=== PATIENT | male | born 1945 | race Caucasian/White ===

== ENCOUNTER → 2016-06-28 | Outpatient (CLI) | payer MEDICARE, OTHER ==
[~2016-06-28] MED LIST: ALEVE220 MG PO; ASPIR 8181 M1 PO; CAPOTEN50 MG PO; CAPTOPRIL50 MG PO; CIALIS5 MG PO; DAILY VITAMIN1 EAC8 PO; FLONASE16 G1 BOTH NARES; HYDROCHLOROTH12.5 M2 PO; HYDROCHLOROTHIA25 MG PO; IRON325 M1 PO; LATANOPROST2.5 ML BOTH EYES; METFORMIN HCL500 MG PO; MOTRIN800 MG PO; POTASSIUM CHLO10 ME3 PO; PROTONIX40 MG PO; SIMVASTATIN40 M1 PO; SIMVASTATIN40 MG PO; SYMBICORT60 INHALAT IH; TAMSULOSIN HCL0.4 MG PO; TRAMADOL HCL50 MG PO; TUSSIN COUGH15 MG PO; ZOLPIDEM TARTRA10 MG PO
== END | disposition home or self-care (01) ==
LOC: CDC 09:52
DX: Z01.810 Encounter for preprocedural cardiovascular examination (principal)
CPT/HCPCS: 93000

== ENCOUNTER 2016-08-05 21:29 | Emergency (ER) | payer OTHER ==
[~2016-08-05] VITALS: Ht 177.8 cm; Wt 93.9 kg
[2016-08-05 22:22] LABS: ADD MIUA? YES; BILIRUBIN NEGATIVE; BLOOD MODERATE; COLOR YELLOW ((YELLOW)); GLUCOSE (STRIP) NEGATIVE; KETONES NEGATIVE; LEUKOCYTES LARGE; NITRITE POSITIVE; PROTEIN (STRIP) NEGATIVE; SPECIFIC GRAVITY 1.004 (1.000-1.030); UROBILINOGEN 0.2 MG/DL (0.2-1.0)
[2016-08-05 22:46] LABS: EPITHELIAL CELLS RARE /HPF; WHITE BLOOD CELLS TNTC /HPF (0-5)
[2016-08-05 22:47] LABS: BACTERIA 2+ /HPF; CASTS NONE SEEN /LPF; CRYSTALS NONE SEEN; MUCUS NONE SEEN /LPF
[2016-08-05] MEDS ORDERED: KEFLEX500 MG PO (22:49)
[2016-08-05 23:05] VITALS: BP 149/86
== END 2016-08-05 23:11 | disposition home or self-care (01) ==
LOC: EME 21:29
PROVIDERS: Physician Assistant
DX: N39.0 Urinary tract infection, site not specified (principal); J44.9 Chronic obstructive pulmonary disease, unspecified; E78.5 Hyperlipidemia, unspecified; I10 Essential (primary) hypertension; F17.200 Nicotine dependence, unspecified, uncomplicated
CPT/HCPCS: 81003; 87077; 87086; 87186; 99281; 99284

== ENCOUNTER 2016-08-21 14:05 | Emergency (ER) | payer OTHER ==
[~2016-08-21] VITALS: Ht 177.8 cm; Wt 93.0 kg
[~2016-08-21 14:05] MED LIST changes: +KEFLEX500 MG PO
[2016-08-21 16:22] LABS: HEMATOCRIT 41.8 % (38.0-50.0); MCH 32.1 PG (29.0-34.0); MCHC 35.4 G/DL (30.0-36.0); MCV 90.7 FL (86-99); MEAN PLAT.VOLUME 8.8 uM^3 (9.0-12.4); PLATELET COUNT 286 K/uL (156-360); RBC DIS.WIDTH-CV 12.1 % (11.8-14.6); RBC DIS.WIDTH-SD 40.6 % (39-53); RED BLOOD COUNT 4.61 M/uL (4.00-5.50); WHITE BLOOD COUNT 7.6 K/uL (4.1-10.2)
[2016-08-21 16:39] LABS: CHLORIDE 98 mEq/L (99-109); POTASSIUM 3.7 mEq/L (3.7-5.4); SODIUM 134 mEq/L (136-147)
[2016-08-21 16:39] LABS: ADD MIUA? NO; BILIRUBIN NEGATIVE; BLOOD NEGATIVE; COLOR YELLOW ((YELLOW)); GLUCOSE (STRIP) NEGATIVE; KETONES NEGATIVE; LEUKOCYTES NEGATIVE; NITRITE NEGATIVE; PROTEIN (STRIP) NEGATIVE; SPECIFIC GRAVITY 1.004 (1.000-1.030); UCUL ADDED? NO; UROBILINOGEN 0.2 MG/DL (0.2-1.0)
[2016-08-21 16:41] LABS: GLUCOSE 184 mg/dL (70-99)
[2016-08-21 16:42] LABS: ANION GAP 10 MEQ/L (2-14)
[2016-08-21 16:45] LABS: GFR ESTIMATE (CALCULATED) > 59 mL/min/
[2016-08-21 16:46] LABS: UREA NITROGEN (BUN) 8 mg/dL (9-23)
[2016-08-21 19:50] VITALS: BP 109/80
== END 2016-08-21 19:52 | disposition home or self-care (01) ==
LOC: EME 14:05
PROVIDERS: Physician Assistant
PROC: 0T9B70Z Drainage of Bladder with Drainage Device, Via Natural or Artificial Opening (ICD-10-PCS; principal; 2016-08-21)
DX: R33.9 Retention of urine, unspecified (principal); N32.3 Diverticulum of bladder; R93.422 Abnormal radiologic findings on diagnostic imaging of left kidney; E11.9 Type 2 diabetes mellitus without complications; Z79.84 Long term (current) use of oral hypoglycemic drugs; I10 Essential (primary) hypertension; J44.9 Chronic obstructive pulmonary disease, unspecified; E78.5 Hyperlipidemia, unspecified; F32.9 Major depressive disorder, single episode, unspecified; F17.200 Nicotine dependence, unspecified, uncomplicated; Z85.828 Personal history of other malignant neoplasm of skin; Z98.890 Other specified postprocedural states
CPT/HCPCS: 74176; 80048; 81003; 85027; 99281; 99284

== ENCOUNTER 2016-12-11 11:43 | Emergency (ER) | payer OTHER ==
[~2016-12-11] VITALS: Ht 177.8 cm; Wt 91.8 kg
[2016-12-11] MEDS ORDERED: FLEXERIL10 MG PO (12:17)
[2016-12-11] MEDS ORDERED: NAPROXEN500 MG PO (12:17)
[2016-12-11] MEDS ORDERED: LIDODERM 5% P1 PATCH TD (12:17)
[2016-12-11] MEDS ORDERED: PREDNISONE20 MG PO (12:17)
[2016-12-11 13:00] VITALS: BP 121/80
== END 2016-12-11 13:02 | disposition home or self-care (01) ==
LOC: EME 11:43
DX: S39.012A Strain of muscle, fascia and tendon of lower back, initial encounter (principal); X50.9XXA Other and unspecified overexertion or strenuous movements or postures, initial encounter; M54.41 Lumbago with sciatica, right side; I10 Essential (primary) hypertension; E11.9 Type 2 diabetes mellitus without complications; Z79.84 Long term (current) use of oral hypoglycemic drugs; Z79.82 Long term (current) use of aspirin; F17.200 Nicotine dependence, unspecified, uncomplicated
CPT/HCPCS: J1885; J7512

== ENCOUNTER → 2017-03-09 | Outpatient (CLI) | payer MEDICARE, OTHER ==
[~2017-03-09] MED LIST changes: +FLEXERIL10 MG PO; +LIDODERM 5% P1 PATCH TD; +NAPROXEN500 MG PO; +PREDNISONE20 MG PO
== END | disposition home or self-care (01) ==
LOC: CDC 10:57
DX: Z01.810 Encounter for preprocedural cardiovascular examination (principal); M51.26 Other intervertebral disc displacement, lumbar region
CPT/HCPCS: 93000

== ENCOUNTER 2017-04-01 07:17 | Day surgery (SDC) | payer OTHER ==
[~2017-04-01] VITALS: Ht 177.8 cm; Wt 95.2 kg
[~2017-04-01 07:17] MED LIST changes: +AMBIEN10 MG PO; +FLONASE ALLERG9.9 ML BOTH NARES; +GLUCOPHAGE500 MG PO; +GUAIFENESIN WI120 ML PO; +MUCINEX1200 MG PO; +NEURONTIN300 MG PO; +NORCO 5/3251 TABLET PO; +PROAIR HFA8.5 GM IH; +PROSCAR5 MG PO; +ULTRAM50 MG PO; +XALATAN2.5 ML BOTH EYES
[2017-04-01] MEDS ORDERED: HYDROCHLOROTHIA25 MG PO (08:46)
[2017-04-01] MEDS ORDERED: HYDROCODON-ACE1 EAC7 PO (08:53)
[2017-04-01 08:59] VITALS: BP 135/76
[2017-04-01] MEDS ORDERED: VALIUM5 MG PO (13:38)
[2017-04-01] MEDS ORDERED: PERCOCET 10/1 TABLET PO (13:38)
[2017-04-01 16:19] VITALS: BP 114/56
[2017-04-01 19:11] VITALS: BP 117/73
[2017-04-01 23:32] VITALS: BP 117/68
[2017-04-02 02:46] VITALS: BP 128/66
[2017-04-02 07:34] VITALS: BP 115/67
== END 2017-04-02 10:09 | disposition home or self-care (01) ==
LOC: SDC 07:17 → 2SOUTH 13:25 → ENRESERV 13:34 → 3EAST 15:33 → SDC 15:43 → 3EAST 04-02 10:09
PROVIDERS: Neurological Surgery
DX: M51.16 Intervertebral disc disorders with radiculopathy, lumbar region (principal); M48.061 Spinal stenosis, lumbar region without neurogenic claudication; M48.07 Spinal stenosis, lumbosacral region; M79.604 Pain in right leg; E78.5 Hyperlipidemia, unspecified; I10 Essential (primary) hypertension; E11.9 Type 2 diabetes mellitus without complications; J44.9 Chronic obstructive pulmonary disease, unspecified; F17.200 Nicotine dependence, unspecified, uncomplicated; K21.9 Gastro-esophageal reflux disease without esophagitis; N40.0 Benign prostatic hyperplasia without lower urinary tract symptoms; Z79.82 Long term (current) use of aspirin
CPT/HCPCS: 72100; 76000; 82948; G0378; J0131; J0330; J0690; J1100; J1170; J2250; J2405; J2710; J3010; J3480

== ENCOUNTER 2017-06-24 05:22 | Day surgery (SDC) | payer OTHER ==
[~2017-06-24] VITALS: Ht 177.8 cm; Wt 93.4 kg
[~2017-06-24 05:22] MED LIST changes: +BACLOFEN10 MG PO; +ECHINACEA400 MG PO; +HYDROCODON-ACE1 EAC7 PO; +LYRICA50 MG PO; +PERCOCET 10/1 TABLET PO; +VALIUM5 MG PO; +VITAMIN C1000 MG PO
[2017-06-24 06:12] VITALS: BP 119/50
[2017-06-24 14:00] VITALS: BP 99/53
[2017-06-24 16:00] VITALS: BP 99/53
[2017-06-24 20:34] VITALS: BP 101/60
[2017-06-25 00:21] VITALS: BP 97/55
[2017-06-25 04:25] VITALS: BP 110/61
[2017-06-25 08:00] VITALS: BP 123/66
== END 2017-06-25 12:42 | disposition home or self-care (01) ==
LOC: SDC → ENRESERV 09:23 → 2SOUTH 09:30 → ENRESERV 12:30 → 3EAST 14:21 → SDC 15:40 → 3EAST 06-25 12:42
PROVIDERS: Neurological Surgery
DX: M51.16 Intervertebral disc disorders with radiculopathy, lumbar region (principal); M48.062 Spinal stenosis, lumbar region with neurogenic claudication; J44.9 Chronic obstructive pulmonary disease, unspecified; I10 Essential (primary) hypertension; E11.9 Type 2 diabetes mellitus without complications; Z79.84 Long term (current) use of oral hypoglycemic drugs; Z79.82 Long term (current) use of aspirin; E78.00 Pure hypercholesterolemia, unspecified; K21.9 Gastro-esophageal reflux disease without esophagitis
CPT/HCPCS: 72020; 76000; 82948; 87070; 87075; 87205; 88304; 94640; 94640 76; 99202; G0378; J0690; J1100; J1170; J1885; J2250; J2405; J3010; J3480

== ENCOUNTER 2017-08-04 14:01 | Inpatient (IN) | payer OTHER ==
[~2017-08-04] VITALS: Ht 177.8 cm; Wt 80.7 kg
[~2017-08-04 14:01] MED LIST changes: +LYRICA150 MG PO; -LYRICA50 MG PO
[2017-08-04 14:48] LABS: BASOPHIL (%) 0.3 % (0-1); BASOPHIL COUNT 0.1 K/uL (0-0.1); EOSINOPHIL (%) 1.1 % (0-5); EOSINOPHIL COUNT 0.2 K/uL (0-0.3); HEMATOCRIT 40.1 % (38.0-50.0); HEMOGLOBIN 14.8 G/DL (12.5-16.6); IMMATURE GRANULOCYTE (%) 0.5 % (0.0-0.7); LYMPHOCYTE (%) 4.9 % (15-42); LYMPHOCYTE COUNT 0.9 K/uL (1.0-2.8); MCH 32.2 PG (29.0-34.0); MCHC 36.9 G/DL (30.0-36.0); MCV 87.4 FL (86-99); MONOCYTE (%) 8.3 % (3-12); MONOCYTE COUNT 1.6 K/uL (0-0.8); NEUTROPHIL (%) 84.9 % (45-76); NEUTROPHIL COUNT 15.9 K/uL (1.8-6.4); PLATELET COUNT 360 K/uL (156-360); RBC DIS.WIDTH-CV 11.9 % (11.8-14.6); RBC DIS.WIDTH-SD 38.5 % (39-53); RED BLOOD COUNT 4.59 M/uL (4.00-5.50); WHITE BLOOD COUNT 18.7 K/uL (4.1-10.2)
[2017-08-04 14:57] LABS: CHLORIDE 99 mEq/L (99-109); POTASSIUM 3.1 mEq/L (3.7-5.4); SODIUM 136 mEq/L (136-147)
[2017-08-04 15:00] LABS: GLUCOSE 139 mg/dL (70-99); TOTAL PROTEIN 6.9 g/dL (6.4-8.3)
[2017-08-04 15:02] LABS: TOTAL BILIRUBIN 0.5 mg/dL (0.0-1.0)
[2017-08-04 15:03] LABS: ALKALINE PHOSPHATASE 64 IU/L (3-129); CREATININE 0.7 mg/dL (0.6-1.3); GFR ESTIMATE (CALCULATED) > 59 mL/min/ (58.99-99999)
[2017-08-04 15:04] LABS: UREA NITROGEN (BUN) 7 mg/dL (9-23)
[2017-08-04 15:05] LABS: AST (GOT) 20 IU/L (2-34)
[2017-08-04 15:06] LABS: ALT (GPT) 14 IU/L (3-49)
[2017-08-04 15:09] LABS: TROP-I INTERPRETATION NEGATIVE; TROPONIN-I < 0.01 ng/mL (0.0-0.30)
[2017-08-04] MEDS ORDERED: AUGMENTIN875 MG PO (17:35)
[2017-08-04 20:30] VITALS: BP 131/67
[2017-08-04 20:45] VITALS: BP 131/67
[2017-08-04 21:25] LABS: TROP-I INTERPRETATION NEGATIVE; TROPONIN-I < 0.01 ng/mL (0.0-0.30)
[2017-08-04 23:48] VITALS: BP 133/65
[2017-08-05 02:12] LABS: TROP-I INTERPRETATION NEGATIVE; TROPONIN-I < 0.01 ng/mL (0.0-0.30)
[2017-08-05 05:31] VITALS: BP 130/68
[2017-08-05 06:13] LABS: BASOPHIL (%) 0.6 % (0-1); EOSINOPHIL (%) 3.3 % (0-5); EOSINOPHIL COUNT 0.2 K/uL (0-0.3); HEMATOCRIT 37.7 % (38.0-50.0); IMMATURE GRANULOCYTE (%) 0.3 % (0.0-0.7); LYMPHOCYTE COUNT 1.7 K/uL (1.0-2.8); MCH 30.8 PG (29.0-34.0); MCHC 34.5 G/DL (30.0-36.0); MCV 89.3 FL (86-99); MONOCYTE (%) 13.8 % (3-12); PLATELET COUNT 315 K/uL (156-360); RBC DIS.WIDTH-CV 12.3 % (11.8-14.6); RED BLOOD COUNT 4.22 M/uL (4.00-5.50)
[2017-08-05 06:37] LABS: CHLORIDE 102 MEQ/L (99-109); CREATININE 0.7 MG/DL (0.6-1.3); GFR ESTIMATE (CALCULATED) > 59 mL/min/ (58.99-99999); SODIUM 139 MEQ/L (136-147); UREA NITROGEN (BUN) 6 mg/dL (9-23)
[2017-08-05 06:41] LABS: GLUCOSE 94 mg/dL (70-99); POTASSIUM 4.1 MEQ/L (3.7-5.4)
[2017-08-05 07:47] VITALS: BP 118/68
[2017-08-05 12:13] VITALS: BP 122/69
[2017-08-05 15:26] VITALS: BP 121/76
[2017-08-05 19:11] VITALS: BP 125/76
[2017-08-05 23:25] VITALS: BP 101/56
[2017-08-06 03:36] VITALS: BP 98/55
[2017-08-06 07:19] VITALS: BP 125/78
[2017-08-06 11:22] VITALS: BP 125/73
== END 2017-08-06 13:43 | disposition home or self-care (01) | DRG 195 ==
LOC: EME 14:01 → EDOF 17:17 → ENRESERV 17:24 → EDOF 17:46 → 3EAST 17:46 → ENRESERV 17:50 → CANRESERV 18:15 → ENRESERV 18:15 → 3EAST 20:19
PROVIDERS: Emergency Medicine; Family Medicine
DX: J18.0 Bronchopneumonia, unspecified organism (principal); F17.210 Nicotine dependence, cigarettes, uncomplicated; E11.9 Type 2 diabetes mellitus without complications; E78.5 Hyperlipidemia, unspecified; E87.6 Hypokalemia; F17.290 Nicotine dependence, other tobacco product, uncomplicated; I10 Essential (primary) hypertension; N40.0 Benign prostatic hyperplasia without lower urinary tract symptoms; M19.90 Unspecified osteoarthritis, unspecified site; R00.2 Palpitations; J44.9 Chronic obstructive pulmonary disease, unspecified; F10.10 Alcohol abuse, uncomplicated; E66.9 Obesity, unspecified; M51.36 Other intervertebral disc degeneration, lumbar region; Y90.9 Presence of alcohol in blood, level not specified; Z85.828 Personal history of other malignant neoplasm of skin; Z90.49 Acquired absence of other specified parts of digestive tract; Z79.82 Long term (current) use of aspirin; Z79.51 Long term (current) use of inhaled steroids; Z68.25 Body mass index [BMI] 25.0-25.9, adult; Z79.84 Long term (current) use of oral hypoglycemic drugs; Z82.49 Family history of ischemic heart disease and other diseases of the circulatory system
CPT/HCPCS: 70450; 71046; 71275; 80048; 80053; 83605; 84484; 85025; 85379; 93005; 93306; 94640; 94640 76; 99202; 99281; 99285; J0456; J0696; J1650; J7040